=== PATIENT | female | born 1980 | race Hispanic/Latino ===

== ENCOUNTER 2016-05-03 07:15 | Emergency (ER) | payer OTHER ==
[~2016-05-03] VITALS: Ht 154.9 cm; Wt 73.5 kg
[~2016-05-03 07:15] MED LIST: BACTRIM DS 8001 TAB PO; BENTYL20 M1 PO; BISAC-EVAC10 MG PR; CIPRO 500MG TA500 MG PO; CYCLOBENZAPRINE10 MG PO; DEEP SEA 45 ML45 ML NAS; DIAZEPAM2 MG PO; DOK100 MG PO; FLUCONAZOLE150 MG PO; HYDROCODONE/ACE1 TA1 PO; IBU800 MG PO; LEVOTHYROXIN0.075 M1 PO; LINZESS290 MCG PO; LYRICA150 MG PO; LYRICA75 MG PO; MACROBID100 MG PO; METHYLPREDNISONE4 MG PO; MYLICON IN40 MG/0.6 PO; NAPROXEN500 MG PO; PERCOCET 325 MG1 TA2 PO; PERCOCET 325 MG1 TA3 PO; PERCOCET 5-3251 EACH PO; PYRIDIUM200 MG PO; SAVELLA 50MG50 MG PO; SENOKOT8.6 MG PO; TRAMADOL50 MG PO; VALIUM5 M1 PO; VICODIN 300 MG-1 TAB PO; VITAB121000 PO; VITAMIN D1000 IU PO; ZOFRAN 2MG/4 MG/2 ML IV; ZOFRAN ODT4 M1 PO; ZOFRAN4 M1 SL
[2016-05-03 07:20] VITALS: BP 128/93
--- NOTE | 2016-05-03 07:23 | ED GENERAL ADULT ---
History of Present Illness General Chief Complaint: Low Back Pain/Injury Stated Complaint: LOW BACK PAIN Source: patient Exam Limitations: no limitations Vital Signs & Intake/Output Vital Signs & Intake/Output Vital Signs Date Time Temp Pulse Resp B/P Pulse O2 O2 Flow FiO2 Ox Delivery Rate 05/03 0720 97.8 76 16 128/93 100 Room Air Allergies Coded Allergies: Penicillins (HIVES 08/03/15) cat pelt standardized allergenic ex (CAT PELT STANDARDIZED EXTRACT) (EYES SWELLING 08/03/15) lactose (GI UPSET 08/03/15) Reconcile Medications Cholecalciferol (Vitamin D3) 1,000 UNIT TABLET 1,000 IU PO DAILY VITAMIN D SUPPLEMENT (Reported) Cyanocobalamin (Vitamin B-12) 1,000 MCG TABLET 1 TAB PO DAILY SUPPLEMENT ( Reported) Dicyclomine HCl (Bentyl) 20 MG TABLET 1 TAB PO TID ABD SPASMS Levothyroxine Sodium 75 MCG TABLET 1 TAB PO DAILY AC THYROID (Reported) Linaclotide (Linzess) 290 MCG CAPSULE 1 TAB PO DAILY IBS (Reported) Lorazepam (Ativan) 1 MG TABLET 1 TAB PO Q12 PRN MUSCLE TIGHTNESS Milnacipran (Savella 50MG) 50 MG TABLET 1 TAB PO BID FIBROMYALGIA (Reported) Ondansetron (Zofran Odt) 4 MG TAB.RAPDIS 1 TAB PO Q6P PRN NAUSEA/VOMITING ( Reported) Oxycodone HCl/Acetaminophen (Percocet 5-325 MG Tablet) 1 EACH TABLET 1-2 TAB PO Q6P PRN PAIN Prednisone 20 MG TABLET 1 TAB PO BID ARTHRITIS Pregabalin (Lyrica) 75 MG CAP 75 MG PO BID ANXIETY Triage Note: 35 Y/O FEMALE C/O PAIN IN LOW BACK X 1 WEEK; WITH NUMBNMESS DOWN L LEG SINCE YESTERDAY. HAS BEEN TAKING NAPROSYN WITH NO RELIEF - NO MEDS TAKEN TODAY. Triage Nurses Notes Reviewed? yes Onset: Abrupt Duration: day(s): Timing: recent history : No Patient currently breastfeeds: No HPI: 05/03/16 8 AM 35-year-old female presents to the emergency department complaining of arthritis exacerbation over the past 7 days. She says she has a history of arthritis. Now she's having upper back pain and numbness in the hands over the last 24 hours, she also has some discomfort when she raises the left leg in her back. She says she had an MRI about a year ago that showed arthritis. She has a past medical history of hypothyroidism, low vitamin D and E levels, fibromyalgia, vertigo, irritable bowel syndrome, arthritis, and anxiety. She says she has been on Ativan in the past but ran out She has a past surgical history of right shoulder surgery, status post tubal ligation, status post partial hysterectomy 2, status post ovarian cyst removed No associated bowel or bladder dysfunction Past History Travel History Traveled to [place] past 21 day No Medical History Any Pertinent Medical History? see below for history Neurological: NONE EENT: VERTIGO Cardiovascular: NONE Respiratory: NONE Gastrointestinal: irritable bowel syndrome Hepatic: NONE Renal: NONE Musculoskeletal: osteoarthritis, sciatica, FIBROMYALGIA Psychiatric: anxiety, depression Endocrine: hypothyroidism, VIT B AND D DEFICIENCY Blood Disorders: NONE Cancer(s): NONE CUTTER WOODWIND REEDS/Reproductive: OVARIAN CYSTS History of MRSA: No History of VRE: No History of CDIFF: No Surgical History Surgical History: tubal ligation, ROTATOR CUFF SX 2 CYST REMOVAL PARTIAL HYSTERECTOMY partial hysterectomy Psychosocial History Who do you live with Family Services at Home None What is your primary language Czech Tobacco Use: Quit >30 days ago Family History Hx Contributory? No Review of Systems Review of Systems Constitutional: Denies: fever. EENTM: Denies: visual changes. Respiratory: Denies: short of breath. Cardiovascular: Denies: chest pain. GI: Denies: abdominal pain. Genitourinary: Reports: no symptoms. Musculoskeletal: Reports: back pain. Skin: Denies: rash. Neurological/Psychological: Reports: numbness. Hematologic/Endocrine: Reports: no symptoms. Physical Exam Physical Exam General Appearance: alert, awake, anxious, mild distress Head: atraumatic, normal appearance Eyes: Bilateral: normal appearance, PERRL, EOMI. Ears, Nose, Throat: normal pharynx, normal ENT inspection Neck: normal inspection, supple, full range of motion Respiratory: normal breath sounds, chest non-tender, no respiratory distress Cardiovascular: regular rate/rhythm Peripheral Pulses: 4+ radial (R), 4+ radial (L) Gastrointestinal: non-tender Back: decreased range of motion, muscle spasm Extremities: normal range of motion, no edema Neurologic/Psych: no motor/sensory deficits, awake, alert, oriented x 3, normal gait Skin: intact, normal color, warm/dry Comments: The patient had tenderness to her paravertebral muscles in the lumbar region, exam otherwise unremarkable Core Measures ACS in differential dx? No CVA/TIA Diagnosis: No Severe Sepsis Present: No Septic Shock Present: No Progress Differential Diagnoses I considered the following diagnoses in my evaluation of the patient: [Disc herniation, lumbar strain, exacerbation of arthritis, exacerbation of fibromyalgia, epidural abscess, transverse myelitis, Lyme disease] Plan of Care: Follow up with her doctor this week Initial ED EKG: none Departure Departure Disposition: HOME OR SELF CARE Condition: Stable Clinical Impression Primary Impression: Arthritis Secondary Impressions: Fibromyalgia Referrals: MATILDA MENDOZA MD (PCP/Family) Departure Forms: Customer Survey General Discharge Information Prescriptions: Current Visit Scripts Prednisone 1 TAB PO BID #10 TAB Lorazepam (Ativan) 1 TAB PO Q12 PRN MUSCLE TIGHTNESS #6 TAB Comments 05/03/16 8:45 AM The patient was treated with Percocet in the ED. She was discharged on prednisone and a very short course of Ativan as needed. She'll follow-up with her doctor on Saturday. She said that prednisone is helped her in the past. Critical Care Note Critical Care Note Critical Care Time: non-applicable
[2016-05-03] MEDS ORDERED: PREDNISONE20 M1 PO (07:39)
[2016-05-03] MEDS ORDERED: ATIVAN1 M1 PO (07:39)
== END 2016-05-03 07:44 ==
LOC: ERH 07:15
DX: M47.9 Spondylosis, unspecified (principal); M79.7 Fibromyalgia

== ENCOUNTER 2017-10-13 15:43 | Emergency (ER) | payer OTHER ==
[~2017-10-13] VITALS: Ht 152.4 cm; Wt 80.7 kg
[~2017-10-13 15:43] MED LIST changes: +ANUSOL-HC25 M1 RC; +ATIVAN1 M1 PO; +BACLOFEN10 M1 PO; +CYCLOBENZAPRINE10 M1 PO; +LEVOTHYROXINE75 MCG PO; +LINZESS290 MC1 PO; -LINZESS290 MCG PO; +MARI INH; +NAPROXEN500 M2 PO; +PREDNISONE20 M1 PO; +PROAIR HFA8.5 GM INH; +ULTRAM50 M1 PO; -VITAB121000 PO; +VITAMIN B-121000 MC3 PO; -VITAMIN D1000 IU PO; +VITAMIN D31000 UNI1 PO; +ZOFRAN ODT4 M1 SL; +ZOLPIDEM TARTRA10 M1 PO
[2017-10-13 16:09] LABS: ABSOLUTE BASOPHIL COUNT 0 /CUMM (0.0-0.2); ABSOLUTE EOSINOPHIL COUNT 0.1 /CUMM (0.0-0.7); ABSOLUTE GRANULOCYTE CT 4.3 /CUMM (1.4-6.5); ABSOLUTE LYMPH COUNT 2.6 /CUMM (1.2-3.4); ABSOLUTE MONOCYTE COUNT 0.3 /CUMM (0.10-0.60); BASOPHIL % 0.4 % (0.0-2.0); EOSINOPHIL % 1.2 % (0-5); GRANULOCYTE % 57.8 % (42.2-75.2); HEMATOCRIT 39.8 % (37-47); MEAN CORPUSCULAR HGB 29.8 PG (27.0-31.0); MEAN CORPUSCULAR HGB CONC 32.7 G/DL (33.0-37.0); MEAN CORPUSCULAR VOLUME 91.1 FL (81.0-99.0); MEAN PLATELET VOLUME 10.3 FL (7.4-10.4); PLATELET COUNT 214 /CUMM (130-400); RBC DISTRIBUTION WIDTH 14.1 % (11.5-14.5); RED BLOOD CELL CT 4.38 /CUMM (4.20-5.40); WHITE BLOOD CELL COUNT 7.4 /CUMM (4.8-10.8)
--- NOTE | 2017-10-13 16:23 | ED GI/GU/ABDOMINAL COMPLAINT ---
History of Present Illness General Chief Complaint: General Adult Stated Complaint: LOWER LEFT BACK PAIN,NAUSEA Source: patient, old records Exam Limitations: no limitations Vital Signs & Intake/Output Vital Signs & Intake/Output Vital Signs Date Time Temp Pulse Resp B/P B/P Pulse O2 O2 Flow FiO2 Mean Ox Delivery Rate 10/13 1842 98.1 57 18 125/73 98 Room Air 10/13 1601 Room Air 10/13 1548 98.5 63 18 139/84 96 Room Air Allergies Coded Allergies: Penicillins (HIVES 08/03/15) cat dander (EYES SWELL 01/03/17) lactose (GI UPSET 08/03/15) Reconcile Medications Cannabis (Marijuana Oil) (Unknown Strength) AMP (Unknown Dose) INH AD FIBROMYALGIA/ARTHRITIS SPINE (Reported) Cholecalciferol (Vitamin D3) (Vitamin D3) 1,000 UNIT CAPSULE 1 CAP PO DAILY SUPPLEMENT (Reported) Cyanocobalamin (Vitamin B-12) 1,000 MCG TABLET 1 TAB PO DAILY SUPPLEMENT ( Reported) Cyclobenzaprine HCl 10 MG TABLET 1 TAB PO BID ARTHRITIS (Reported) Levothyroxine Sodium 75 MCG TABLET 1 TAB PO DAILY THYROID (Reported) Linaclotide (Linzess) 290 MCG CAPSULE 1 CAP PO DAILY IBS (Reported) Naproxen 500 MG TABLET 1 TAB PO BID PRN PAIN/INFLAMMATION (Reported) Ondansetron (Zofran Odt) 4 MG TAB.RAPDIS 1 TAB SL TID PRN nausea Oxycodone HCl/Acetaminophen (Percocet 5-325 MG Tablet) 5 MG-325 MG TABLET 1 TAB PO BID PRN pain Zolpidem Tartrate 10 MG TABLET 1 TAB PO QPM SLEEP (Reported) Triage Note: PT TO ER C/C 1 WEEK HX OF RLQ PAIN AND 2 DAY HX OF LEFT FLANK/LOW BACK PAIN. + NAUSEA. DENIES URINARY S/S. Triage Nurses Notes Reviewed? yes LMP (ages 10-50): hysterectomy ? n Is pt currently ? No Onset: Gradual Duration: week(s): Timing: recent history Quality/Severity: moderate Location: RLQ, left flank HPI: 37yo female with hx of fibroids s/p total hysterectomy presents to ED complaining of RLQ abdominal pain x 1 week. Pain described sharp, stabbing, intermittent. Patient also reports pain which has been constant for the past 3 days. Patient has associated nausea. LBM was today and normal. The patient denies fevers, chills, vomiting, diarrhea, dysuria, hematuria. (June Santiago) Past History Travel History Traveled to [place] past 21 day No Medical History Any Pertinent Medical History? see below for history Neurological: vertigo EENT: VERTIGO Cardiovascular: NONE Respiratory: NONE Gastrointestinal: irritable bowel syndrome Hepatic: NONE Renal: NONE Musculoskeletal: osteoarthritis, sciatica, FIBROMYALGIA Psychiatric: anxiety, depression Endocrine: hypothyroidism, VIT B AND D DEFICIENCY Blood Disorders: NONE Cancer(s): NONE DIRECTOR OF FINANCIAL PLANNING/Reproductive: OVARIAN CYSTS History of MRSA: No History of VRE: No History of CDIFF: No Surgical History Surgical History: hysterectomy, tubal ligation, ROTATOR CUFF SX 2 CYST REMOVAL PARTIAL HYSTERECTOMY partial hysterectomy Psychosocial History Who do you live with Family Services at Home None What is your primary language Beninese Tobacco Use: Current Daily Use Daily Tobacco Use Amount/Type: => 5 Cigarettes daily Family History Hx Contributory? No (June Santiago) Review of Systems Review of Systems Constitutional: Reports: no symptoms. EENTM: Reports: no symptoms. Respiratory: Reports: no symptoms. Cardiovascular: Reports: no symptoms. GI: Reports: see HPI. Genitourinary: Reports: no symptoms. Musculoskeletal: Reports: see HPI. Skin: Reports: no symptoms. Neurological/Psychological: Reports: no symptoms. Hematologic/Endocrine: Reports: no symptoms. Immunologic/Allergic: Reports: no symptoms. All Other Systems: Reviewed and Negative (June Santiago) Physical Exam Physical Exam General Appearance: well developed/nourished, no apparent distress, alert, awake Head: atraumatic, normal appearance Eyes: Bilateral: normal appearance. Ears, Nose, Throat, Mouth: hearing grossly normal Neck: normal inspection, supple, full range of motion Respiratory: normal breath sounds, no respiratory distress, lungs clear Cardiovascular: regular rate/rhythm Gastrointestinal: normal bowel sounds, soft, no organomegaly, RLQ tenderness without rebound or gaurding Back: normal inspection, normal range of motion, no CVA tenderness Extremities: normal range of motion Neurologic/Psych: awake, alert, oriented x 3 Skin: intact, normal color, warm/dry Core Measures ACS in differential dx? No Sepsis Present: No Sepsis Focused Exam Completed? No (June Santiago) Progress Differential Diagnosis: appendicitis, bowel obstruction, diverticulitis, hepatitis, hernia, inflamm bowel dis, kidney stone, SBO, UTI/pyelo Plan of Care: Orders Procedure Date/time Status URINE 10/13 154 Complete URINALYSIS 10/13 154 Complete LIPASE 10/13 154 Complete COMPREHENSIVE METABOLIC PANEL 10/13 154 Complete CBC WITHOUT DIFFERENTIAL 10/13 1546 Complete Laboratory Tests 10/13/17 1557: Anion Gap 13, Estimated GFR > 60, BUN/Creatinine Ratio 15.0, Glucose 90, Calcium 9.8, Total Bilirubin 0.6, AST 23, ALT 31, Alkaline Phosphatase 87, Total Protein 7.8, Albumin 4.4, Globulin 3.4, Albumin/Globulin Ratio 1.3, Lipase 174, CBC w Diff NO MAN DIFF REQ, RBC 4.38, MCV 91.1, MCH 29.8, MCHC 32.7 L, RDW 14.1, MPV 10.3, Gran % 57.8, Lymphocytes % 35.9, Monocytes % 4.7, Eosinophils % 1.2, Basophils % 0.4, Absolute Granulocytes 4.3, Absolute Lymphocytes 2.6, Absolute Monocytes 0.3, Absolute Eosinophils 0.1, Absolute Basophils 0, Urine Color YEL, Urine Clarity CLEAR, Urine pH 6.0, Ur Specific Parker 1.025, Urine Protein NEG, Urine Ketones NEG, Urine Nitrite NEG, Urine Bilirubin NEG, Urine Urobilinogen 0.2, Ur Leukocyte Esterase NEG, Ur Microscopic SEDIMENT EXAMINED, Urine RBC 1-3, Urine WBC RARE, Ur Epithelial Cells RARE, Urine Bacteria RARE H, Urine Mucus FEW, Urine Hemoglobin TRACE-INTACT, Urine Glucose NEG, Urine Test NEGATIVE UA shows no evidence of acute infection. Patient's labs are stable, nonactionable. Patient's CT scan shows no evidence of abnormality in abdomen or pelvis. No hydronephrosis to indicate ureteral obstruction. Patient has no uterus or ovaries, low suspicion for DIRECTOR OF FINANCIAL PLANNING pathology in this patient. Symptoms are likely more consistent with GI and abdominal pain with nausea. Patient has seen Dr. Gilman in the past. Will have patient follow up Dr. Gilman for further evaluation. Patient reports improvement in her pain following IV morphine. Patient was given strict return precautions. She is in no acute distress, vital signs are stable, she is nontoxic-appearing. The patient agrees with the plan of care. Diagnostic Imaging: Viewed by Me: CT Scan. Discussed w/RAD: CT Scan. Radiology Impression: PATIENT: ALPHONSO CASTAÑEDA PRESENT AGE: 37 PATIENT ACCOUNT NO: [id number] : 78 LOCATION: [facility] ORDERING PHYSICIAN: June HERNANDEZ SERVICE DATE: 10/13/173288 EXAM TYPE: CAT - CT ABD & PELVIS W IV CONTRAST EXAMINATION: CT ABDOMEN AND PELVIS WITH CONTRAST CLINICAL INFORMATION: Right lower quadrant pain. Nausea. COMPARISON: Patient's had 14 CAT scans of the abdomen and pelvis previously from the oldest on the PACS system of 12/14/2008 to the most recent of 03/04/2017. TECHNIQUE: Multidetector volumetric imaging was performed of the abdomen and pelvis following IV administration of 95 mL of Optiray 320 intravenous contrast. Sagittal and coronal reformatted images were obtained on the technologist's workstation. DLP: 427.14 mGy-cm FINDINGS: LUNG BASES: The visualized lung bases are unremarkable. LIVER, GALLBLADDER, AND BILIARY TREE: Small hypodensities in the liver are stable since multiple prior studies consistent with hepatic cysts. No suspicious liver lesion. No intrahepatic bile duct dilatation. The gallbladder is unremarkable with no evidence of radiopaque gallstones, gallbladder wall thickening, or obvious pericholecystic inflammatory changes. PANCREAS: Unremarkable. SPLEEN: Unremarkable. Small splenules at the anterior splenic margin. ADRENAL GLANDS: Unremarkable. KIDNEYS AND URETERS: The kidneys are normal in size, shape, and attenuation. No hydronephrosis, hydroureter, or calculi seen. No perinephric stranding. BLADDER: Unremarkable. GASTROINTESTINAL TRACT: The small and large bowel are unremarkable. The appendix is unremarkable. ABDOMINAL WALL: No significant hernia is appreciated. LYMPH NODES: Normal. VASCULAR: Unremarkable. PELVIC VISCERA: Uterus is absent. There is no adnexal abnormality. OSSEOUS STRUCTURES: Unremarkable. IMPRESSION: No acute abnormality CT scan abdomen pelvis. The appendix is normal. DICTATED BY: Alejandro Guzman MD DATE/TIME DICTATED:10/13/171731 HORTICULTURE/FLORICULTURE TEACHER:ANDRE DATE/TIME TRANSCRIBED:10/13/171731 CONFIDENTIAL, DO NOT COPY WITHOUT APPROPRIATE AUTHORIZATION. <Electronically signed in Other Vendor System> SIGNED BY: Alejandro Guzman MD 10/13/17 6865 Initial ED EKG: none (Leann PA,June Alicia) Departure Departure Disposition: HOME OR SELF CARE Condition: Stable Clinical Impression Primary Impression: Abdominal pain Secondary Impressions: Nausea Referrals: Tamara Ledbetter MD (PCP/Family) Additional Instructions: Follow up with your primary care doctor. Follow up with GI specialist. Return with worsening symptoms or concerns. Please note that there might be incidental findings in your evaluation that are unrelated to the current emergency department visit. Please notify your primary care doctor about this emergency department visit in order to obtain and review all of the testing performed so that these incidental findings can be monitored as needed. If you had an x-ray performed, please understand that some fractures may not be seen on the initial set of x-rays. If your symptoms persist you might need a repeat set of x-rays to check for such a fracture. If you had a laceration evaluated, please understand that foreign bodies such as glass or wood may not be visible to the naked eye or on plain x-rays. If the wound becomes red, swollen, increasingly more painful or if there is any drainage from the wound, please have it reevaluated by a physician for the possibility of a retained foreign body. If you're unable to follow up as outlined in the discharge instructions please return to the emergency department. Thank you for choosing the [facility] Emergency Department for your care. It was a pleasure to serve you today. Departure Forms: Customer Survey General Discharge Information Prescriptions: Current Visit Scripts Oxycodone HCl/Acetaminophen (Percocet 5-325 MG Tablet) 1 TAB PO BID PRN pain #10 TAB Ondansetron (Zofran Odt) 1 TAB SL TID PRN nausea #10 TAB (June Santiago) PA/AIRCRAFT INSTRUMENT TESTER Co-Sign Statement Statement: ED Attending supervision documentation- [] I saw and evaluated the patient. I have also reviewed all the pertinent lab results and diagnostic results. I agree with the findings and the plan of care as documented in the PA's/AIRCRAFT INSTRUMENT TESTER's documentation. [X] I have reviewed the ED Record and agree with the PA's/AIRCRAFT INSTRUMENT TESTER's documentation. [] Additions or exceptions (if any) to the PAs/AIRCRAFT INSTRUMENT TESTER's note and plan are summarized below: [] (Carlos ALVES,Chon James)
--- NOTE | 2017-10-13 17:45 | CT SCAN REPORT ---
EXAMINATION: CT ABDOMEN AND PELVIS WITH CONTRAST CLINICAL INFORMATION: Right lower quadrant pain. Nausea. COMPARISON: Patient's had 14 CAT scans of the abdomen and pelvis previously from the oldest on the PACS system of 12/14/2008 to the most recent of 03/04/2017. TECHNIQUE: Multidetector volumetric imaging was performed of the abdomen and pelvis following IV administration of 95 mL of Optiray 320 intravenous contrast. Sagittal and coronal reformatted images were obtained on the technologist's workstation. DLP: 427.14 mGy-cm FINDINGS: LUNG BASES: The visualized lung bases are unremarkable. LIVER, GALLBLADDER, AND BILIARY TREE: Small hypodensities in the liver are stable since multiple prior studies consistent with hepatic cysts. No suspicious liver lesion. No intrahepatic bile duct dilatation. The gallbladder is unremarkable with no evidence of radiopaque gallstones, gallbladder wall thickening, or obvious pericholecystic inflammatory changes. PANCREAS: Unremarkable. SPLEEN: Unremarkable. Small splenules at the anterior splenic margin. ADRENAL GLANDS: Unremarkable. KIDNEYS AND URETERS: The kidneys are normal in size, shape, and attenuation. No hydronephrosis, hydroureter, or calculi seen. No perinephric stranding. BLADDER: Unremarkable. GASTROINTESTINAL TRACT: The small and large bowel are unremarkable. The appendix is unremarkable. ABDOMINAL WALL: No significant hernia is appreciated. LYMPH NODES: Normal. VASCULAR: Unremarkable. PELVIC VISCERA: Uterus is absent. There is no adnexal abnormality. OSSEOUS STRUCTURES: Unremarkable. IMPRESSION: No acute abnormality CT scan abdomen pelvis. The appendix is normal.
[2017-10-13] MEDS ORDERED: ZOFRAN ODT4 M1 SL (18:28)
[2017-10-13] MEDS ORDERED: PERCOCET 5-3251 EACH PO (18:28)
[2017-10-13 18:42] VITALS: BP 125/73
== END 2017-10-13 18:52 ==
LOC: ERH 15:43
PROVIDERS: Physician Assistant
DX: R10.31 Right lower quadrant pain (principal); R11.0 Nausea
CPT/HCPCS: 74177; 81001; 81025; 96374; 96375; J1885; J2405